=== PATIENT | male | born 2000 | race Hispanic/Latino ===

== ENCOUNTER 2023-09-06 23:05 | Emergency (ER) | payer OTHER ==
[~2023-09-06] VITALS: Ht 180.3 cm; Wt 84.1 kg
[2023-09-06 23:36] VITALS: TEMP 99
[2023-09-07 00:12] LABS: BASO # 0.1 10^3/uL (0.0-0.2); BASO % 1.4 % (0.0-1.0); EOS # 0.1 10^3/uL (0.0-0.5); EOS % 1.6 % (0.0-3.0); HEMATOCRIT 43.8 % (42.0-52.0); HEMOGLOBIN 15.3 g/dl (13.5-17.5); LYMPH # 2.2 10^3/uL (1.5-5.0); LYMPH % 35.5 % (24.0-44.0); MEAN CORPUSCULAR HEMOGLOBIN 29.9 pg (27.0-33.0); MEAN CORPUSCULAR HGB CONC 34.9 g/dl (32.0-36.5); MEAN CORPUSCULAR VOLUME 85.7 fl (80.0-96.0); MONO # 0.6 10^3/uL (0.0-0.8); MONO % 10.1 % (2.0-8.0); NEUTROPHILS # 3.2 10^3/uL (1.5-8.5); NEUTROPHILS % 50.9 % (36.0-66.0); PLATELET COUNT, AUTOMATED 320 10^3/uL (150-450); RED BLOOD COUNT 5.11 10^6/uL (4.30-6.10); WHITE BLOOD COUNT 6.2 10^3/uL (4.0-10.0)
[2023-09-07 00:23] LABS: BLOOD UREA NITROGEN 19 MG/DL (9-23); CALCIUM LEVEL 9.1 MG/DL (8.5-10.1); CARBON DIOXIDE LEVEL 24 MMOL/L (20-31); CHLORIDE LEVEL 104 MMOL/L (98-107); CREATININE FOR GFR 0.92 MG/DL (0.70-1.30); GLOMERULAR FILTRATION RATE > 60.0 (>60); GLUCOSE, FASTING 95 MG/DL (60-100); POTASSIUM SERUM 3.8 MMOL/L (3.5-5.1); SODIUM LEVEL 139 MMOL/L (136-145)
[2023-09-07 01:18] LABS: CK-MB VALUE MASS 3.2 NG/ML (<3.6)
[2023-09-07 01:22] LABS: CPK CREATINE PHOSPHOKINASE 513 U/L (46-171); MB/CK RELATIVE INDEX 0.62 (< OR =4)
[2023-09-07] MEDS ORDERED: KETOROLAC 30 MG/ML 1ML VIAL As Ordered ONE (01:46)
[2023-09-07] MEDS ORDERED: KETOROLAC 30 MG/ML 1ML VIAL IV ONE (01:50)
[2023-09-07] MEDS ORDERED: ISOVUE-370 76% 100ML VIAL As Ordered ONE ×2 (02:13→02:31)
[2023-09-07 02:53] LABS: CK-MB VALUE MASS 1.9 NG/ML (<3.6)
[2023-09-07 02:55] LABS: CPK CREATINE PHOSPHOKINASE 460 U/L (46-171); MB/CK RELATIVE INDEX 0.41 (< OR =4)
[2023-09-07] MEDS ORDERED: HOLTER MONITOR XX (05:11)
[2023-09-07 05:27] LABS: C REACTIVE PROTEIN QUANTITATIV < 0.40 MG/DL (<1.0)
[2023-09-07 05:30] VITALS: BP 123/60; O2SAT 98
== END 2023-09-07 05:41 | disposition home or self-care (01) ==
LOC: EDBD 23:05 → M ED 23:05
DX: R07.89 Other chest pain (principal); R00.2 Palpitations; F17.290 Nicotine dependence, other tobacco product, uncomplicated
CPT/HCPCS: 71046; 71275; 80048; 82550; 82553; 84484; 85025; 86140; 93005; 93041; 94760; 99285; J1885; Q9967

== ENCOUNTER → 2023-09-09 | Outpatient (CLI) | payer OTHER ==
[~2023-09-09] MED LIST: HOLTER MONITOR XX
== END ==
LOC: M EKG 09:57
PROVIDERS: ATTEND Emergency Medicine
DX: R00.2 Palpitations (principal)